=== PATIENT | female | born 1960 | race Caucasian/White ===

== ENCOUNTER → 2017-01-04 | Outpatient (CLI) | payer BC ==
[~2017-01-04] MED LIST: CALCTAB5 PO; CHOL100010 PO; MULT-513 PO; Magnesium PO; OMEG10007 PO; XRL20 PO
== END | disposition home or self-care (01) ==
LOC: C.PATHSPEC 15:55
PROVIDERS: ATTEND Obstetrics & Gynecology
DX: N95.0 Postmenopausal bleeding (principal)

== ENCOUNTER → 2017-05-17 | Outpatient (CLI) | payer BC ==
--- NOTE | 2017-05-18 14:39 | MAMMOGRAPHY REPORT ---
BILATERAL DIGITAL SCREENING MAMMOGRAM TOMOSYNTHESIS WITH CAD: 05/17/2017 CLINICAL HISTORY: Routine screening. TECHNIQUE: Breast tomosynthesis in addition to standard 2D mammography was performed. Current study was also evaluated with a Computer Aided Detection (CAD) system. COMPARISON: Comparison is made to exams dated: 05/11/2016 mammogram, 03/28/2014 mammogram, 03/27/2013 m ammogram, 03/21/2012 mammogram, 03/16/2011 mammogram, and 03/10/2010 mammogram - [facility]. BREAST COMPOSITION: There are scattered areas of fibroglandular density in both breasts. FINDINGS: There is stable asymmetry in the lateral left breast, and scattered benign-appearing puncta te microcalcifications. No suspicious spiculated or irregular mass, architectural distortion or clus ter of suspicious microcalcifications is seen. IMPRESSION: ACR BI-RADS CATEGORY 1: NEGATIVE There is no mammographic evidence of malignancy. A 1 year screening mammogram is recommended. The pa tient will receive written notification of the results. Approximately 10% of breast cancers are not detected with mammography. A negative mammographic report should not delay biopsy if a clinically suggestive mass is present. Marina Cook M.D. ay/:05/17/2017 17:21:43 Tube Dispatcher: Christopher BRODERICK)(M), [facility] letter sent: Normal 1/2 BI-RADS Code: ACR BI-RADS Category 1: Negative
== END | disposition home or self-care (01) ==
LOC: C.MAMM 08:43
PROVIDERS: ATTEND Obstetrics & Gynecology
DX: Z12.31 Encounter for screening mammogram for malignant neoplasm of breast (principal)